=== PATIENT | female | born 1985 | race American Indian/Alaskan Native ===

== ENCOUNTER 2021-12-16 12:34 | Inpatient (IN) | payer MEDICAID ==
[2021-12-16] MEDS ORDERED: TERBUTALINE 1 MG/1 ML INJ SUB-Q PRN (13:23)
[2021-12-16] MEDS ORDERED: PROMETHAZINE 25 MG TAB PO PRN (13:23)
[2021-12-16] MEDS ORDERED: fentaNYL 100 MCG/2 ML INJ IV PRN (13:23)
[2021-12-16] MEDS ORDERED: ePHEDrine SULFATE 50 MG/1 ML INJ IV PRN (13:23)
[2021-12-16] MEDS ORDERED: ONDANSETRON 4 MG/2 ML INJ IV PRN (13:23)
[2021-12-16] MEDS ORDERED: LIDOCAINE (2%) 20 MG/1 ML VIAL 20 ML MDV INFILTRATI ONE (13:23)
[2021-12-16] MEDS ORDERED: CARBOPROST TROMETHAMINE 250 MCG/1 ML INJ IM PRN (13:23)
[2021-12-16] MEDS ORDERED: LOPERAMIDE 2 MG CAP PO PRN (13:23)
[2021-12-16] MEDS ORDERED: OXYTOCIN 10 UNIT/1 ML INJ IM PRN (13:23)
[2021-12-16] MEDS ORDERED: MINERAL OIL 30 ML ORAL LIQD PO PRN (13:23)
[2021-12-16] MEDS ORDERED: ACETAMINOPHEN 500 MG TAB PO PRN (13:23)
[2021-12-16] MEDS ORDERED: miSOPROStol 200 MCG TAB PR PRN (13:23)
[2021-12-16] MEDS ORDERED: NALOXONE 0.4 MG/1 ML INJ IV PRN (13:23)
[2021-12-16] MEDS ORDERED: BUTORPHANOL 2 MG/1 ML INJ IV PRN (13:23)
[2021-12-16] MEDS ORDERED: OXYTOCIN DRIP 30 UNITS/500 ML BAG IV SCH ×2 (14:00)
[2021-12-16] MEDS ORDERED: AMPICILLIN/NS 2 GM/100 ML 2 GM/100 ML BAG IV ONE ×2 (14:00→19:00)
--- NOTE | 2021-12-16 14:02 | History and Physical Report ---
History of Present Illness Date of examination: 12/16/21 Date of admission: 12/16/21 12:35 Chief complaint: IOL recommended by [facility] d/t elevated blood pressures during visit and cHTN. History of present illness: Pt is a @ 37.5 wks who presents to the hospital for IOL. She was being seen by [facility] for cHTN. Her blood pressures this AM at her [facility] visit were noted to be 165/95 and 150/90. she has had insufficient care this . Her last visit for routine care was on 11/08/2021. Her BPP today was 8/8, EFW 7-8. She takes Labetalol 200mg BID this . She had a baseline 24 hr urine that resulted as 576 on July 15, 2021. EDC Confirmation: 01/01/2022 Gestational Age: 37.5 weeks on admission Past History : 5 Term Births: 1 Premature Births: 1 Living Children: 2 Para: 2 Mult. Births: 0 Prev : 0 Aborta: 2 Elect. Ab: 1 Spont. Ab: 1 Ectopics: 0 # 1 Delivery date: 05/20/2002 Weeks Gestation: 36 labor: yes Delivery type: Hours of labor: 9 Anesthesia type: epidural Delivery location: [place] [facility] Sex: Female weight: 4-8 Name: Franchesca # 2 Delivery date: 05/06/2010 Weeks Gestation: 39 labor: yes Delivery type: Hours of labor: 12 Anesthesia type: epidural Delivery location: [place] [facility] Sex: Male weight: 7-12 Name: Kobi # 3 Delivery date: - Weeks Gestation: = Delivery type: EAB # 4 Delivery date: 03/2021 Weeks Gestation: 6 Delivery type: SAB Past Medical History: Reviewed and updated today: Hypertension Past Surgical History: Reviewed and updated today: Negative Past Surgical History Family History Summary: Reviewed history and no changes required: 06/13/2021 Father - Has Family History of Diabetes - Entered On: 01/19/2018 Other Family Member - Has No Family History of Ovarvian Cancer - Entered On: 01/01/2015 Other Family Member - Has No Family History of Colon Cancer - Entered On: 01/01 Other Family Member - Has No Family History of Cervical Cancer - Entered On: 01/01/2015 MGM - Has Family History Breast Cancer - Entered On: 01/01/2015 Father - Has Family History of Hypertension - Entered On: 01/01/2015 Mother - Has Family History of Hypertension - Entered On: 01/01/2015 Social History: Patient is single/engaged Transportation business Smoking History: Patient has never smoked. Risk Factors: Smoked Tobacco Use: Never smoker Smokeless Tobacco Use: Never Counseled to Quit/Cut Down: yes HIV High Risk Behavior: low risk Caffeine Use: 0 drinks per day Exercise: no Seatbelt Use: 100 % No Dietary Counseling Reason: pn yes Alcohol Use: yes Drinks per day: <1 Drug Use: no Past Medical History Surgery (Non-heel slicker): Negative Past Surgical History Uterine Anomaly: negative Other Gynecologic Problems: negative Social Hx: Patient is single/engaged Transportation business Smoking History: Patient has never smoked. Infection History Hx of STD: none HIV Risk Eval: low risk Personal hx. of genital herpes: no Genetic History ADVANCED MATERNAL AGE Congenital Heart Defect: Mom: no Dad: no Logan Disease: Mom: no Dad: no Thalassemia Mom: no Dad: no Neural Tube Defect Mom: no Dad: no Down's Syndrome Mom: no Dad: no Wicho-Sachs Mom: no Dad: no Sickle Cell Disease/Trait Mom: no Dad: no Hemophilia Mom: no Dad: no Muscular Dystrophy Mom: no Dad: no Cystic Fibrosis Mom: no Dad: no [place] Chorea Mom: no Dad: no Mental Retardation Mom: no Dad: no Fragile X Mom: no Dad: no Other Genetic/Chromosomal Disorder Mom: no Dad: no Child w/other defect Mom: no Dad: no Current Allergies (reviewed today): No known allergies Past History Past Medical History: hypertension Past Surgical History: no surgical history Family/Genetic History: diabetes, hypertension Social history: no significant social history - Obstetrical History Expected Date of Delivery: 01/01/22 Actual Gestation: 37 Week(s) 6 Day(s) : 5 Para: 2 Hx # Term Pregnancies: 1 Number of Pregnancies: 1 Spontaneous Abortions: 1 Induced : 1 Number of Living Children: 2 Medications and Allergies Allergies Allergy/AdvReac Type Severity Reaction Status Date / Time No Known Allergies Allergy Unverified 10/04/14 17:20 Home Medications Medication Instructions Recorded Confirmed Last Taken Type Diclofenac [Ashly Holder] 75 mg PO Q12H #20 tablet 03/22/15 Unknown Rx Vit-Fe Neymar [ 1 tab PO DAILY 12/16/21 12/16/21 12/16/21 History Vitamin] 1 tab labetaloL [Labetalol 200mg TAB] 200 mg PO BID 12/16/21 12/16/21 2 Days Ago History ~12/14/21 200 mg tab Active Meds: Active Medications Acetaminophen (Acetaminophen 500 Mg Tab) 1,000 mg PO Q6H PRN PRN Reason: Pain, Mild (1-3) Butorphanol Tartrate (Butorphanol 2 Mg/1 Ml Inj) 1 mg IV Q2H PRN PRN Reason: Pain, Moderate(4-6) LABOR PAIN Carboprost Tromethamine (Carboprost Tromethamine 250 Mcg/1 Ml Inj) 250 mcg IM ONCE PRN PRN Reason: Uterine Bleeding Ephedrine Sulfate (Ephedrine Sulfate 50 Mg/1 Ml Inj) 10 mg IV Q2M PRN PRN Reason: Hypotension Fentanyl (Fentanyl 100 Mcg/2 Ml Inj) 100 mcg IV Q2H PRN PRN Reason: Pain,Severe (7-10) LABOR PAIN Oxytocin/Sodium Chloride (Pitocin/Ns 30 Unit/500ml) 30 units in 500 mls @ 2 mls/hr IV TITR FAROOQ; Protocol Lactated Ringer's (Lactated Ringers) 1,000 mls @ 125 mls/hr IV DIRECT FAROOQ Oxytocin/Sodium Chloride (Pitocin/Ns 30 Unit/500ml) 30 units in 500 mls @ 40 mls/hr IV TITR FAROOQ; Protocol Ampicillin Sodium (Ampicillin/Ns 2 Gm/100 Ml) 2 gm in 100 mls @ 100 mls/hr IV ONCE ONE; Protocol Stop: 12/16/21 14:59 Loperamide HCl (Loperamide 2 Mg Cap) 2 mg PO ONCE PRN PRN Reason: give with Hemabate Mineral Oil (Mineral Oil 30 Ml Oral Liqd) 30 ml PO QHS PRN PRN Reason: Constipation Misoprostol (Misoprostol 200 Mcg Tab) 800 mcg WA ONCE PRN PRN Reason: Uterine Bleeding Naloxone HCl (Naloxone 0.4 Mg/1 Ml Inj) 0.1 mg IV Q2MIN PRN PRN Reason: Res Rate </= 8 or 02 SAT < 92% Ondansetron HCl (Ondansetron 4 Mg/2 Ml Inj) 4 mg IV Q8H PRN PRN Reason: Nausea And Vomiting Oxytocin (Oxytocin 10 Unit/1 Ml Inj) 10 unit IM ONCE PRN PRN Reason: Uterine Bleeding Promethazine HCl (Promethazine 25 Mg Tab) 25 mg PO Q6H PRN PRN Reason: Nausea And Vomiting Terbutaline Sulfate (Terbutaline 1 Mg/1 Ml Inj) 0.25 mg SUB-Q ONCE PRN PRN Reason: Hyperstimulation/Hypertonicity Review of Systems All systems: negative - Physical Exam Cardiovascular: Regular rate Lungs: Positive: Normal air movement Abdomen: Positive: normal appearance, soft Genitourinary (Female): Positive: normal external genitalia, normal perenium Vulva: both: normal Vagina: Positive: normal moisture Uterus: Positive: enlarged (Normal for gravid uterus. ) Extremities: Positive: normal Deep Tendon Reflex Grade: Normal +2 - Obstetrical FHR: category 1 Uterine Contraction Monitor Mode: External Cervical Dilatation: 1.5 Cervical Effacement Percentage: 70 station: -1 Uterine Contraction Pattern: Irregular Uterine Tone Measurement Phase: Resting Uterine Contraction Intensity: Mild Results Result Diagrams: 12/16/21 14:18 All other labs normal. GBS UNKNOWN HBsAg Screen Negative Negative *1 RPR Non Reactive Non Reactive *2 Rubella Antibodies, IgG 1.60 index Immune >0.99 *3 Non-immune <0.90 Equivocal 0.90 - 0.99 Immune >0.99 ABO Grouping O *4 Rh Factor Positive *5 Please note: Prior records for this patient's ABO / Rh type are not available for additional verification. Tests: (4) Comp. Metabolic Panel (14) (995579) Glucose [H] 110 mg/dL 65-99 *36 BUN 6 mg/dL 6-20 *37 Creatinine 0.63 mg/dL 0.57-1.00 *38 ! eGFR 116 mL/min/1.73 >59 *39 BUN/Creatinine Ratio 10 9-23 *40 Sodium 134 mmol/L 134-144 *41 Potassium 4.1 mmol/L 3.5-5.2 *42 Chloride 102 mmol/L 96-106 *43 Carbon Dioxide, Total [L] 18 mmol/L 20-29 *44 Calcium 10.0 mg/dL 8.7-10.2 *45 Protein, Total 7.0 g/dL 6.0-8.5 *46 Albumin 4.2 g/dL 3.8-4.8 *47 Globulin, Total 2.8 g/dL 1.5-4.5 *48 A/G Ratio 1.5 1.2-2.2 *49 Bilirubin, Total 0.2 mg/dL 0.0-1.2 *50 Alkaline Phosphatase 48 IU/L 44-121 *51 AST (SGOT) 16 IU/L 0-40 *52 ALT (SGPT) 12 IU/L 0-32 *53 Tests: (5) LD Isoenzymes (025852) LDH 169 IU/L 119-226 *54 (LD) Fraction 1 21 % 17-32 *55 (LD) Fraction 2 32 % 25-40 *56 (LD) Fraction 3 23 % 17-27 *57 (LD) Fraction 4 10 % 5-13 *58 (LD) Fraction 5 14 % 4-20 *59 Tests: (6) Creatinine Clearance ([id number]) Creatinine, Urine 102.8 mg/dL Not Estab. *60 Creatinine, Ur 24hr [H] 1850 mg/24 hr 800-1800 *61 Creatinine Clearance [H] 204 mL/min 88-128 *62 The above range is based on 1.73 square meter average body surface area. Tests: (7) Protein Total, Qn, 24-Hr Urine ([id number]) Protein,Total,Urine 32.0 mg/dL Not Estab. *63 Prot,24hr calculated [H] 576 mg/24 hr 30-150 *64 Tests: (8) HB Solu + Rflx Frac ([id number]) Hemoglobin (Hgb) Solubility Negative Negative *65 Tests: (9) HIV Ab/p24 Ag with Reflex ([id number]) HIV Ab/p24 Ag Screen Non Reactive Non Reactive *66 HIV Negative HIV-1/HIV-2 antibodies and HIV-1 p24 antigen were NOT detected. There is no laboratory evidence of HIV infection. Tests: (10) HCV Antibody reflex to LISS ([id number]) HCV Ab <0.1 s/co ratio 0.0-0.9 *67 Tests: (11) Interpretation: ([id number]) ! Interpretation: SPRCS *68 Negative Not infected with HCV, unless recent infection is suspected or other evidence exists to indicate HCV infection. Effective August 09, 2021 HCV Antibody reflex to LISS will be made non-orderable. This will affect any Custom Profile that includes [id number] HCV Antibody reflex to LISS. [facility] offers order code [id number] HCV Antibody RFX to Quant PCR as an alternative. Assessment and Plan A: 36 y.o. @ 37.5 wks, IOL d/t cHTN. Insufficient care in 3rd trimester. - Patient Problems (1) 37 weeks gestation of Current Visit: Yes Status: Acute Plan to address problem: Monitor status through EFM. (2) Chronic hypertension during Current Visit: Yes Status: Acute Plan to address problem: Admit to labor and delivery. Draw admission labs. Initiate IV. Labetalol 200mg BID. GBS unknown: antibiotics ordered. Pain management: IV pain medication epidural when pt desires. Initiate IOL with low dose Pitocin. Monitor for s/sx of Pre-eclampisa. Strict I&O's. Monitor blood pressures. (3) Insufficient care in third trimester Current Visit: Yes Status: Acute Plan to address problem: Case management after delivery.
[2021-12-16 15:03] LABS: Hematocrit 35.1 % (30.3-42.9); Mean Corpuscular HGB Conc 34 % (30-34); Mean Corpuscular Volume 80 fl (79-97); Platelet Count 154 K/mm3 (140-440)
[2021-12-16] MEDS ORDERED: AMPICILLIN/NS 1 GM/50 ML 1 GM/50 ML BAG IV SCH (18:00)
[2021-12-16] MEDS: LACTATED RINGERS 1,000 ML IV SCH (18:30)
[2021-12-17 05:00] LABS: Alanine Aminotransferase 16 units/L (7-56); Uric Acid 2.5 mg/dL (3.5-7.6)
--- NOTE | 2021-12-17 08:02 | Event Note ---
Date: 12/17/21 SVE completed with no change. 1.5/-3, soft. Plan for cytotec one does PO and start pitocin at noon. Plan of care discussed with patient.
[2021-12-17] MEDS ORDERED: miSOPROStol 25 MCG TAB PO SCH (09:00)
[2021-12-17] MEDS ORDERED: OXYTOCIN DRIP 30 UNITS/500 ML BAG IV SCH (12:00)
--- NOTE | 2021-12-17 13:02 | Event Note ---
Date: 12/17/21 Pitocin started by ANANT. RAMA 2.560/-1, AROM with small amount of clear fluid, FSE and IUPC placed. anticipated.
[2021-12-17] MEDS ORDERED: NALOXONE 0.4 MG/1 ML INJ IV PRN (14:27)
[2021-12-17] MEDS ORDERED: ePHEDrine SULFATE 50 MG/1 ML INJ IV PRN (14:27)
--- NOTE | 2021-12-17 14:28 | Anesthesia Consultation ---
Anesthesia Consult and Med Hx Date of service: 12/17/21 - Pulmonary Hx Asthma: No COPD: No Hx Pneumonia: Yes (2007) - Cardiovascular System Hx Hypertension: Yes - Central Nervous System Hx Seizures: No Hx Psychiatric Problems: No - Endocrine Hx Renal Disease: No Hx End Stage Renal Disease: No Hx Hypothyroidism: No Hx Hyperthyroidism: No - Hematic Hx Anemia: No Hx Sickle Cell Disease: No
--- NOTE | 2021-12-17 14:29 | Progress Note ---
Labor Epidural - Labor Epidural Start Time: 14:15 Stop Time: 14:22 Performed by:: RAVIN CAGE Procedure: Patient is requesting a laboring epidural for laboring pain. Patient IDed, H&P reviewed, all questions and concerns were answered, and consent was signed. Timeout was performed at bedside. Patient in sitting position. Sterile prep and drape was performed. [3] ml of 1% lidocaine skin wheal at L[3]- L [4]. 17- gauge Tuohy epidural needle was advanced to loss of resistance with saline technique 6cm. Single dural perforation via 25 guage spinal needle placed through the shaft of Epidural needle. Positive CSF via spinal needle. Negative CSF negative blood via Epidural needle. Epidural catheter advanced to [10] centimeters. [NEGATIVE] Aspiration [NEGATIVE] test dose. Negative Paresthesia. Sterile dressing applied. Patient tolerated procedure.
[2021-12-17] MEDS: LACTATED RINGERS 1,000 ML IV SCH (14:50)
[2021-12-17] MEDS: AMPICILLIN/NS 1 GM/50 ML 1 GM/50 ML BAG IV SCH ×2 (14:52→19:24)
[2021-12-17] MEDS ORDERED: fentaNYL-BUPIV 2 MCG/ML-0.125% 200 MCG/100 ML BAG EPIDURAL SCH (15:00)
--- NOTE | 2021-12-17 16:55 | Progress Note ---
Assessment and Plan Pt asymptomatic for PreE. Comfortable with epidural. Pitocin infusing at 8ml/hr, RN to continue titrating for adequate labor. IUPC replaced. Anticipate - Patient Problems (1) 37 weeks gestation of Current Visit: Yes Status: Acute (2) Chronic hypertension during Current Visit: Yes Status: Acute (3) Insufficient care in third trimester Current Visit: Yes Status: Acute Subjective - Subjective Date of service: 12/17/21 Principal diagnosis: IOL for Chronic HTN Patient reports: loss of fluid, movement normal, contractions (comfortable with epidural) Objective - Vital Signs Vital Signs: Vital Signs - 12hr 12/17/21 12/17/21 12/17/21 04:52 04:54 04:57 Temperature Pulse Rate 97 H 89 86 Blood Pressure O2 Sat by Pulse 96 93 94 Oximetry O2 Sat by Pulse Oximetry [ Bilateral] 12/17/21 12/17/21 12/17/21 05:02 05:03 05:07 Temperature Pulse Rate 84 88 91 H Blood Pressure O2 Sat by Pulse 100 94 97 Oximetry O2 Sat by Pulse Oximetry [ Bilateral] 12/17/21 12/17/21 12/17/21 05:12 05:14 05:17 Temperature Pulse Rate 91 H 91 H 87 Blood Pressure 127/92 O2 Sat by Pulse 98 97 Oximetry O2 Sat by Pulse Oximetry [ Bilateral] 12/17/21 12/17/21 12/17/21 05:18 05:22 05:27 Temperature Pulse Rate 89 87 94 H Blood Pressure O2 Sat by Pulse 93 97 98 Oximetry O2 Sat by Pulse Oximetry [ Bilateral] 12/17/21 12/17/21 12/17/21 05:34 05:38 05:39 Temperature Pulse Rate 91 H 87 87 Blood Pressure O2 Sat by Pulse 98 93 92 Oximetry O2 Sat by Pulse Oximetry [ Bilateral] 12/17/21 12/17/21 12/17/21 05:44 05:45 05:50 Temperature Pulse Rate 97 H 89 91 H Blood Pressure 159/94 O2 Sat by Pulse 94 98 96 Oximetry O2 Sat by Pulse Oximetry [ Bilateral] 12/17/21 12/17/21 12/17/21 05:51 05:55 05:59 Temperature Pulse Rate 94 H 86 81 Blood Pressure O2 Sat by Pulse 94 95 94 Oximetry O2 Sat by Pulse Oximetry [ Bilateral] 0912/17/21 12/17/21 06:00 06:04 06:05 Temperature Pulse Rate 79 84 82 Blood Pressure O2 Sat by Pulse 95 94 94 Oximetry O2 Sat by Pulse Oximetry [ Bilateral] 12/17/21 12/17/21 12/17/21 06:10 06:11 06:14 Temperature Pulse Rate 97 H 91 H 86 Blood Pressure 160/82 O2 Sat by Pulse 93 94 Oximetry O2 Sat by Pulse Oximetry [ Bilateral] 12/17/21 12/17/21 12/17/21 06:15 06:16 06:20 Temperature Pulse Rate 87 85 89 Blood Pressure O2 Sat by Pulse 92 94 94 Oximetry O2 Sat by Pulse Oximetry [ Bilateral] 12/17/21 12/17/21 12/17/21 06:22 06:25 06:29 Temperature Pulse Rate 89 87 80 Blood Pressure O2 Sat by Pulse 94 96 94 Oximetry O2 Sat by Pulse Oximetry [ Bilateral] 12/17/21 12/17/21 12/17/21 06:30 06:35 06:40 Temperature Pulse Rate 84 88 95 H Blood Pressure O2 Sat by Pulse 95 95 96 Oximetry O2 Sat by Pulse Oximetry [ Bilateral] 12/17/21 12/17/21 12/17/21 06:42 06:45 06:46 Temperature Pulse Rate 82 89 84 Blood Pressure 167/83 O2 Sat by Pulse 94 90 Oximetry O2 Sat by Pulse Oximetry [ Bilateral] 12/17/21 12/17/21 12/17/21 06:49 06:50 06:54 Temperature Pulse Rate 82 88 91 H Blood Pressure O2 Sat by Pulse 93 96 92 Oximetry O2 Sat by Pulse Oximetry [ Bilateral] 12/17/21 12/17/21 12/17/21 06:55 06:59 07:00 Temperature Pulse Rate 85 94 H 93 H Blood Pressure O2 Sat by Pulse 95 94 96 Oximetry O2 Sat by Pulse Oximetry [ Bilateral] 12/17/21 12/17/21 12/17/21 07:05 07:10 07:15 Temperature Pulse Rate 89 87 91 H Blood Pressure 146/79 O2 Sat by Pulse 96 97 96 Oximetry O2 Sat by Pulse Oximetry [ Bilateral] 12/17/21 12/17/21 12/17/21 07:20 07:25 07:30 Temperature Pulse Rate 91 H 84 86 Blood Pressure 172/88 O2 Sat by Pulse 97 96 97 Oximetry O2 Sat by Pulse Oximetry [ Bilateral] 12/17/21 12/17/21 12/17/21 07:32 07:53 09:14 Temperature 98.2 F Pulse Rate 88 92 H Blood Pressure 150/82 146/83 O2 Sat by Pulse Oximetry O2 Sat by Pulse 98 Oximetry [ Bilateral] 12/17/21 12/17/21 12/17/21 09:44 10:14 10:46 Temperature Pulse Rate 78 92 H 90 Blood Pressure 138/67 155/91 171/77 O2 Sat by Pulse Oximetry O2 Sat by Pulse Oximetry [ Bilateral] 12/17/21 12/17/21 12/17/21 11:14 14:12 14:14 Temperature Pulse Rate 92 H 97 H 94 H Blood Pressure 134/83 148/66 143/68 O2 Sat by Pulse 98 Oximetry O2 Sat by Pulse Oximetry [ Bilateral] 12/17/21 12/17/21 12/17/21 14:17 14:20 14:22 Temperature Pulse Rate 102 H 91 H 97 H Blood Pressure 147/80 150/80 O2 Sat by Pulse 97 97 Oximetry O2 Sat by Pulse Oximetry [ Bilateral] 12/17/21 12/17/21 12/17/21 14:23 14:26 14:27 Temperature Pulse Rate 94 H 103 H 101 H Blood Pressure 144/76 159/70 O2 Sat by Pulse 97 Oximetry O2 Sat by Pulse Oximetry [ Bilateral] 12/17/21 12/17/21 12/17/21 14:29 14:32 14:35 Temperature Pulse Rate 100 H 102 H 100 H Blood Pressure 145/68 132/68 131/65 O2 Sat by Pulse 97 Oximetry O2 Sat by Pulse Oximetry [ Bilateral] 12/17/21 12/17/21 12/17/21 14:37 14:38 14:41 Temperature Pulse Rate 101 H 100 H 104 H Blood Pressure 126/61 137/65 O2 Sat by Pulse 97 Oximetry O2 Sat by Pulse Oximetry [ Bilateral] 12/17/21 12/17/21 12/17/21 14:42 14:44 14:47 Temperature Pulse Rate 97 H 98 H 99 H Blood Pressure 124/61 124/60 O2 Sat by Pulse 97 97 Oximetry O2 Sat by Pulse Oximetry [ Bilateral] 12/17/21 12/17/21 12/17/21 14:50 14:52 14:53 Temperature Pulse Rate 99 H 99 H 103 H Blood Pressure 132/63 123/59 O2 Sat by Pulse 96 Oximetry O2 Sat by Pulse Oximetry [ Bilateral] 12/17/21 12/17/21 12/17/21 14:54 14:56 14:57 Temperature Pulse Rate 102 H 98 H 102 H Blood Pressure 126/60 O2 Sat by Pulse 93 95 Oximetry O2 Sat by Pulse Oximetry [ Bilateral] 12/17/21 12/17/21 12/17/21 14:59 15:00 15:02 Temperature Pulse Rate 94 H 95 H 94 H Blood Pressure 120/58 124/60 O2 Sat by Pulse 94 94 Oximetry O2 Sat by Pulse Oximetry [ Bilateral] 12/17/21 12/17/21 12/17/21 15:05 15:07 15:08 Temperature Pulse Rate 96 H 97 H 96 H Blood Pressure 113/59 111/58 O2 Sat by Pulse 92 Oximetry O2 Sat by Pulse Oximetry [ Bilateral] 12/17/21 12/17/21 12/17/21 15:11 15:12 15:14 Temperature Pulse Rate 96 H 97 H 92 H Blood Pressure 124/62 118/60 O2 Sat by Pulse 92 Oximetry O2 Sat by Pulse Oximetry [ Bilateral] 12/17/21 12/17/21 12/17/21 15:17 15:20 15:22 Temperature Pulse Rate 94 H 93 H 94 H Blood Pressure 112/59 118/58 O2 Sat by Pulse 92 93 Oximetry O2 Sat by Pulse Oximetry [ Bilateral] 12/17/21 12/17/21 12/17/21 15:23 15:26 15:27 Temperature Pulse Rate 93 H 92 H 96 H Blood Pressure 118/62 118/59 O2 Sat by Pulse 92 Oximetry O2 Sat by Pulse Oximetry [ Bilateral] 12/17/21 12/17/21 12/17/21 15:29 15:32 15:35 Temperature Pulse Rate 92 H 94 H 93 H Blood Pressure 117/59 119/59 117/57 O2 Sat by Pulse 92 Oximetry O2 Sat by Pulse Oximetry [ Bilateral] 12/17/21 12/17/21 12/17/21 15:37 15:38 15:41 Temperature Pulse Rate 95 H 96 H 92 H Blood Pressure 116/55 115/56 O2 Sat by Pulse 90 Oximetry O2 Sat by Pulse Oximetry [ Bilateral] 09/12/3012/17/21 12/17/21 15:42 15:44 15:47 Temperature Pulse Rate 95 H 90 93 H Blood Pressure 116/56 105/58 O2 Sat by Pulse 91 92 Oximetry O2 Sat by Pulse Oximetry [ Bilateral] 12/17/21 12/17/21 12/17/21 15:50 15:52 15:53 Temperature Pulse Rate 88 92 H 94 H Blood Pressure 122/62 121/61 O2 Sat by Pulse 90 Oximetry O2 Sat by Pulse Oximetry [ Bilateral] 12/17/21 12/17/21 12/17/21 15:55 15:56 15:57 Temperature Pulse Rate 91 H 86 87 Blood Pressure 129/59 O2 Sat by Pulse 94 94 Oximetry O2 Sat by Pulse Oximetry [ Bilateral] 12/17/21 12/17/21 12/17/21 15:59 16:02 16:04 Temperature Pulse Rate 90 92 H 95 H Blood Pressure 121/58 O2 Sat by Pulse 95 93 Oximetry O2 Sat by Pulse Oximetry [ Bilateral] 12/17/21 12/17/21 12/17/21 16:07 16:09 16:12 Temperature Pulse Rate 93 H 87 84 Blood Pressure O2 Sat by Pulse 93 94 94 Oximetry O2 Sat by Pulse Oximetry [ Bilateral] 12/17/21 12/17/21 12/17/21 16:15 16:17 16:20 Temperature Pulse Rate 92 H 90 91 H Blood Pressure O2 Sat by Pulse 93 93 94 Oximetry O2 Sat by Pulse Oximetry [ Bilateral] 12/17/21 12/17/21 12/17/21 16:22 16:27 16:28 Temperature Pulse Rate 88 89 94 H Blood Pressure O2 Sat by Pulse 95 95 93 Oximetry O2 Sat by Pulse Oximetry [ Bilateral] 12/17/21 12/17/21 12/17/21 16:32 16:37 16:42 Temperature Pulse Rate 96 H 85 91 H Blood Pressure 115/60 O2 Sat by Pulse 96 97 95 Oximetry O2 Sat by Pulse Oximetry [ Bilateral] 12/17/21 16:47 Temperature Pulse Rate 97 H Blood Pressure O2 Sat by Pulse 96 Oximetry O2 Sat by Pulse Oximetry [ Bilateral] - Exam Cardiovascular: Regular rate Lungs: Clear to auscultation Abdomen: Present: normal appearance, soft. Absent: distention, tenderness Uterus: Present: normal FHR: auscultation normal, category 1 Uterine Contraction Monitor Mode: Internal Cervical Dilatation: 4 Cervical Effacement Percentage: 80 station: -1 Uterine Contraction Pattern: Regular Uterine Contraction Intensity: Strong/Firm Extremities: normal Deep Tendon Reflex Grade: Normal +2 - Labs Labs: Abnormal Labs 12/16/21 12/17/21 14:18 04:23 MCH 27 L RDW 16.0 H Creatinine 0.3 L Uric Acid 2.5 L Laboratory Results - last 24 hr 12/17/21 04:23 Creatinine 0.3 L Estimated GFR > 60 Uric Acid 2.5 L AST 22 ALT 16 Lactate Dehydrogenase 176
--- NOTE | 2021-12-17 20:09 | Procedure Note ---
OB Delivery Note - Delivery Date of Delivery: 12/17/21 [place] Operator: AMADOR RATLIFF (VÍCTOR [place]) Estimated blood loss: other (400) - Vaginal Delivery presentation: vertex Delivery position: OA (TAYA) Intrapartum events: none Delivery induction: misoprostol Delivery augmentation: rupture of membranes, pitocin Delivery monitor: internal FHT, internal uterine Route of delivery: Delivery placenta: spontaneous Delivery cord: 3 umbilical vessels Episiotomy: none Delivery laceration: 1st degree (hemostatic, no repaired) Anesthesia: epidural Delivery comments: female baby born over intact perineum, placed skin to skin on mother's abdomen. 3 vessel cord clamped and cut after cessation of pulsation. cord blood collected. placenta del intact and complete. 1st degree lac hemostatic, not repaired. EBL 400. all counts correct. - Infant A at 1 minute: 8 at 5 minutes: 9 Gender: Female
[2021-12-17 21:03] LABS: Creatinine,Urine 62.2 mg/dL (0.1-20.0); Protein/Creatinine Ratio,Urine 0.24
[2021-12-18] MEDS ORDERED: ONDANSETRON 4 MG/2 ML INJ IV PRN (01:40)
[2021-12-18] MEDS ORDERED: WITCH HAZEL/ GLYCERIN PAD TP PRN (01:40)
[2021-12-18] MEDS ORDERED: BENZOCAINE/MENTHOL 20/0.5% TOP SPRAY 56 GM TP PRN (01:40)
[2021-12-18] MEDS ORDERED: ACETAMINOPHEN 325 MG TAB PO PRN (01:40)
[2021-12-18] MEDS ORDERED: LANOLIN/ZINC/DIMETHICONE (LANSINOH) 7 GM TP PRN (01:40)
[2021-12-18] MEDS ORDERED: MAGNESIUM HYDROXIDE (MOM) ORAL LIQD UDC PO PRN (01:40)
[2021-12-18] MEDS ORDERED: PROMETHAZINE 25 MG TAB PO PRN (01:40)
[2021-12-18] MEDS ORDERED: diphenhydrAMINE 25 MG CAP PO PRN (01:40)
[2021-12-18] MEDS: IBUPROFEN 800 MG TAB PO SCH ×2 (04:15→14:55)
[2021-12-18] MEDS: DOCUSATE SODIUM 100 MG CAP PO SCH ×3 (04:16→21:47)
[2021-12-18 07:48] LABS: Hematocrit 31.8 % (30.3-42.9); Hemoglobin 10.3 gm/dl (10.1-14.3)
--- NOTE | 2021-12-18 09:09 | Progress Note ---
Assessment and Plan A: 36 y.o. s/p , cHTN. - Patient Problems (1) (normal spontaneous vaginal delivery) Current Visit: Yes Status: Acute Plan to address problem: Continue with care. Continue to monitor blood pressures. Continue to monitor for s/sx of Pre-eclampsia. Continue with Labetalol 300mg BID. Anticipate discharge home on 12/19/2021. Subjective - Subjective Date of service: 12/18/21 Principal diagnosis: s/p , cHTN Interval history: Pt denies chest pain, shortness of breath, upper abdominal pain, HINTON, blurred vision, and spots before her eyes. Patient reports: appetite normal, voiding normally, pain well controlled, ambulating normally [place]: doing well Objective - Vital Signs Latest vital signs: Vital Signs Temp Pulse Resp BP BP Pulse Ox Pulse Ox 12/18/21 04:00 98.6 F 77 18 102/73 12/17/21 23:00 98.1 F 84 22 125/71 98 98 12/17/21 22:31 86 96 12/17/21 22:26 91 H 95 12/17/21 22:25 88 94 12/17/21 22:21 94 H 95 12/17/21 22:16 89 97 12/17/21 22:11 84 96 12/17/21 22:06 89 96 12/17/21 22:01 90 97 12/17/21 22:00 91 H 94 12/17/21 21:56 94 H 98 12/17/21 21:51 95 H 99 12/17/21 21:46 88 99 12/17/21 21:41 90 97 12/17/21 21:37 88 138/76 12/17/21 21:00 88 132/67 12/17/21 20:30 99 H 132/79 12/17/21 19:42 98 H 99 12/17/21 19:40 85 89 12/17/21 19:37 85 99 12/17/21 19:34 99 12/17/21 19:33 97.7 F 16 99 12/17/21 19:32 80 99 12/17/21 19:31 89 142/85 12/17/21 19:27 88 100 12/17/21 19:22 85 100 12/17/21 19:17 87 99 12/17/21 19:12 89 99 12/17/21 19:07 98 H 99 12/17/21 19:02 83 97 12/17/21 19:00 82 120/56 12/17/21 18:57 80 99 12/17/21 18:52 80 99 12/17/21 18:47 77 99 12/17/21 18:42 82 99 12/17/21 18:37 76 99 12/17/21 18:32 74 100 12/17/21 18:31 79 124/66 12/17/21 18:27 91 H 98 12/17/21 18:22 82 99 12/17/21 18:17 87 98 12/17/21 18:12 75 100 12/17/21 18:07 82 100 12/17/21 18:02 78 100 12/17/21 18:00 82 116/59 12/17/21 17:57 78 100 12/17/21 17:52 79 98 12/17/21 17:47 81 96 12/17/21 17:42 86 97 12/17/21 17:37 91 H 96 12/17/21 17:32 85 97 12/17/21 17:30 85 113/66 12/17/21 17:27 87 97 12/17/21 17:22 88 97 12/17/21 17:17 85 97 12/17/21 17:16 83 94 12/17/21 17:12 91 H 97 12/17/21 17:09 89 94 12/17/21 17:07 90 95 12/17/21 17:02 91 H 95 12/17/21 17:00 88 122/67 12/17/21 16:57 90 97 12/17/21 16:52 90 95 12/17/21 16:47 97 H 96 12/17/21 16:42 91 H 95 12/17/21 16:37 85 97 12/17/21 16:32 96 H 115/60 96 12/17/21 16:28 94 H 93 12/17/21 16:27 89 95 12/17/21 16:22 88 95 12/17/21 16:20 91 H 94 12/17/21 16:17 90 93 12/17/21 16:15 92 H 93 12/17/21 16:12 84 94 12/17/21 16:09 87 94 12/17/21 16:07 93 H 93 12/17/21 16:04 95 H 93 12/17/21 16:02 92 H 95 12/17/21 15:59 90 121/58 12/17/21 15:57 87 94 12/17/21 15:56 86 129/59 12/17/21 15:55 91 H 94 12/17/21 15:53 94 H 121/61 12/17/21 15:52 92 H 90 12/17/21 15:50 88 122/62 12/17/21 15:47 93 H 105/58 92 12/17/21 15:44 90 116/56 12/17/21 15:42 95 H 91 12/17/21 15:41 92 H 115/56 12/17/21 15:38 96 H 116/55 12/17/21 15:37 95 H 90 12/17/21 15:35 93 H 117/57 12/17/21 15:32 94 H 119/59 92 12/17/21 15:29 92 H 117/59 12/17/21 15:27 96 H 92 12/17/21 15:26 92 H 118/59 12/17/21 15:23 93 H 118/62 12/17/21 15:22 94 H 93 12/17/21 15:20 93 H 118/58 12/17/21 15:17 94 H 112/59 92 12/17/21 15:14 92 H 118/60 12/17/21 15:12 97 H 92 12/17/21 15:11 96 H 124/62 12/17/21 15:08 96 H 111/58 12/17/21 15:07 97 H 92 12/17/21 15:05 96 H 113/59 12/17/21 15:02 94 H 124/60 94 12/17/21 15:00 95 H 94 12/17/21 14:59 94 H 120/58 12/17/21 14:57 102 H 95 12/17/21 14:56 98 H 126/60 12/17/21 14:54 102 H 93 12/17/21 14:53 103 H 123/59 12/17/21 14:52 99 H 96 12/17/21 14:50 99 H 132/63 12/17/21 14:47 99 H 124/60 97 12/17/21 14:44 98 H 124/61 12/17/21 14:42 97 H 97 12/17/21 14:41 104 H 137/65 12/17/21 14:38 100 H 126/61 12/17/21 14:37 101 H 97 12/17/21 14:35 100 H 131/65 12/17/21 14:32 102 H 132/68 97 12/17/21 14:29 100 H 145/68 12/17/21 14:27 101 H 97 12/17/21 14:26 103 H 159/70 12/17/21 14:23 94 H 144/76 12/17/21 14:22 97 H 97 12/17/21 14:20 91 H 150/80 12/17/21 14:17 102 H 147/80 97 12/17/21 14:14 94 H 143/68 12/17/21 14:12 97 H 148/66 98 12/17/21 11:14 92 H 134/83 12/17/21 10:46 90 171/77 12/17/21 10:14 92 H 155/91 12/17/21 09:44 78 138/67 12/17/21 09:14 92 H 146/83 Intake and Output 12/17/21 12/18/21 12/18/21 22:59 06:59 14:59 Intake Total 50 500 Output Total 1600 Balance 50 -1100 Intake: IV 50 AMPICILLIN/NS 1 GM/50 ML 50 1 gm In 50 ml @ 100 mls/ hr IV 0300,0700,1100,1500 ,1900,2300 [facility] Rx#: [id number] Intake, Free Water 500 Output: Urine 1600 Void 1600 Other: Total, Output Amount 400 # Voids Void 1 Estimated Blood Loss 400 - Exam Cardiovascular: Present: Regular rate Lungs: Present: Normal air movement Abdomen: Present: normal appearance, soft Vulva: both: normal Uterus: Present: normal, other (Light lochia rubra.) Extremities: Present: normal Deep Tendon Reflex Grade: Normal +2 - Labs Labs: Abnormal lab results 12/17/21 Range/Units Unknown Urine Creatinine 62.2 H (0.1-20.0) mg/dL Urine Total Protein 15 H (5-11.8) mg/dL
[2021-12-18] MEDS: PRENATAL VIT27-FE FUMARATE-FOLIC ACID VIT TAB PO SCH (10:44)
--- NOTE | 2021-12-18 12:39 | Post Anesthesia Evaluation ---
- Post Anesthesia Evaluation Patient Participated: Yes Airway Patent: Yes Stable Respiratory Function: Yes Nausea/Vomiting: No Temp > 96.8F: Yes Pain Manageable: Yes Adequeate Hydration: Yes Anesthesia Complications: No Block Receding Appropriately: Yes Patient on Ventilator: No
[2021-12-19] MEDS: IBUPROFEN 800 MG TAB PO SCH ×3 (00:33→12:47)
[2021-12-19] MEDS ORDERED: TETANUS,DIPH,PERTUSS(ACELL) VACCINE 0.5 ML SYRINGE IM ONE (06:00)
[2021-12-19 09:14] VITALS: BP 148/84
[2021-12-19] MEDS: PRENATAL VIT27-FE FUMARATE-FOLIC ACID VIT TAB PO SCH (09:51)
[2021-12-19] MEDS: DOCUSATE SODIUM 100 MG CAP PO SCH (09:51)
--- NOTE | 2021-12-19 12:44 | Discharge Summary ---
Providers - Providers Date of Admission: 12/16/21 12:35 Date of discharge: 12/19/21 Attending physician: ESTUARDO LÓPEZ MD 12/18/21 01:40 Consult to Sustainable Landscape [employer] [CONS] Routine Reason For Exam: assistance with , SNS Primary care physician: ESTUARDO LÓPEZ MD Hospitalization Reason for admission: induction of labor (d/t cHTN) Delivery: Episiotomy: none Laceration: 1st degree Other procedures: none complications: none Discharge diagnosis: IUP at term delivered baby: female Pertinent studies: Pt denies HINTON, blurred vision, spots before her eyes, chest pain, shortness of breath, and upper abdominal pain. We discussed needing to be seen in the office in 1 week and continuing to take blood pressure medications as prescribed. Pt has a blood pressure cuff at home and was educated on how to take a proper blood pressure. Hospital course: S: Pt is doing well. Voiding, ambulating, passing flatus okay. O: VSS stable. Blood pressure ranges have been 116-152/78-84. Minimal bleeding noted. H/H 10.3/31.8. A: 36 y.o. s/p , Hx of cHTN. In good condition . P: Discharge home with instructions. Pt to schedule blood pressure check in office in 1 week. Condition at discharge: Good Disposition: 01 HOME / SELF CARE / HOMELESS - Discharge Diagnoses (1) (normal spontaneous vaginal delivery) Status: Acute Plan - Discharge Medications Prescriptions: Labetalol HCl [Labetalol 300mg TAB] 300 mg PO BID #60 Ibuprofen [Motrin] 800 mg PO Q8HR PRN #20 tablet PRN Reason: Pain, Moderate (4-6) - Provider Discharge Summary Activity: routine, no sex for 6 weeks, no heavy lifting 4 weeks, no strenuous exercise Diet: routine Instructions: routine Additional instructions: [] Smoking cessation referral if applicable(refer to patient education folder for contact #) [] Refer to [facility] Booklet Call your doctor immediately for: * Fever > 100.5 * Heavy vaginal bleeding ( >1 pad per hour) * Severe persistent headache * Shortness of breath * Reddened, hot, painful area to leg or breast * Drainage or odor from incision. * Keep incision clean and dry at all times and follow doctor's instructions regarding bathing/showering - Follow up plan Follow up: ESTUARDO LÓPEZ MD [Primary Care Provider] - 7 Days (- Congratulations on the of your baby girl! - Thank you for allowing us to take care of you! - Please schedule a blood pressure check in the office in 1 week. - Please call the on-call provider if the following occur: Blood pressure 160/100 or greater with or without the following symptoms: headaches, blurred vision, spots before your eyes, feeling like you can't catch your breath, severe pain in your stomach. - Please take your Labetalol as prescribed. - Should you have any questions or concerns after discharge, please do not hesitate to call the office at . ) Forms: [facility] Discharge Summary
== END 2021-12-19 14:20 | disposition home or self-care (01) | DRG 774 ==
LOC: TRG 12:34 → LD 12:35 → TRG 13:35 → OB 12-18 01:36
PROVIDERS: ADMIT Student in an Organized Health Care Education/Training Program; ATTEND Student in an Organized Health Care Education/Training Program
PROC: 10E0XZZ Delivery of Products of Conception, External Approach (ICD-10-PCS; principal; 2021-12-17)
PROC: 10907ZC Drainage of Amniotic Fluid, Therapeutic from Products of Conception, Via Natural or Artificial Opening (ICD-10-PCS; 2021-12-17)
PROC: 10H07YZ Insertion of Other Device into Products of Conception, Via Natural or Artificial Opening (ICD-10-PCS; 2021-12-17)
PROC: 3E0R3BZ Introduction of Anesthetic Agent into Spinal Canal, Percutaneous Approach (ICD-10-PCS; 2021-12-17)
PROC: 00HU33Z Insertion of Infusion Device into Spinal Canal, Percutaneous Approach (ICD-10-PCS; 2021-12-17)
PROC: 3E0P7VZ Introduction of Hormone into Female Reproductive, Via Natural or Artificial Opening (ICD-10-PCS; 2021-12-17)
PROC: 3E0234Z Introduction of Serum, Toxoid and Vaccine into Muscle, Percutaneous Approach (ICD-10-PCS; 2021-12-19)
DX: O10.92 Unspecified pre-existing hypertension complicating childbirth (principal); Z3A.37 37 weeks gestation of pregnancy; Z20.822 Contact with and (suspected) exposure to COVID-19; Z23 Encounter for immunization; Z37.0 Single live birth; O70.0 First degree perineal laceration during delivery
CPT/HCPCS: 36415; 82565; 82570; 83615; 84156; 84450; 84460; 84550; 85014; 85018; 85027; 86592; 86850; 86900; 86901; 88307; G0378; J3490; J0290; J2590; J7120; U0003